=== PATIENT | male | born 1985 | race Caucasian/White ===

== ENCOUNTER 2017-07-12 14:46 | Emergency (ER) | payer SELFPAY ==
[~2017-07-12] VITALS: Ht 175.3 cm; Wt 91.3 kg
[~2017-07-12 14:46] MED LIST: TRAM50TA2 PO
[2017-07-12] MEDS ORDERED: METHOCARBAMOL 750 MG TABLET ONE (16:47)
[2017-07-12] MEDS ORDERED: ACETAMINOPHEN 325 MG TABLET ONE (16:47)
[2017-07-12] MEDS ORDERED: METHOCARBAMOL 750 MG TABLET PO ONE (17:00)
[2017-07-12] MEDS ORDERED: ACETAMINOPHEN 325 MG TABLET PO ONE (17:00)
[2017-07-12 17:04] VITALS: BP 152/94
== END 2017-07-12 17:21 | disposition home or self-care (01) ==
LOC: ED 16:00
DX: S16.1XXA Strain of muscle, fascia and tendon at neck level, initial encounter (principal); X58.XXXA Exposure to other specified factors, initial encounter; Y93.89 Activity, other specified; Y92.89 Other specified places as the place of occurrence of the external cause; Y99.8 Other external cause status
CPT/HCPCS: 70450; 72125; 99284